=== PATIENT | male | born 1995 | race Caucasian/White ===

== ENCOUNTER 2018-10-22 05:23 | Day surgery (SDC) | payer OTHER ==
[~2018-10-22] VITALS: Ht 180.3 cm; Wt 102.1 kg
--- NOTE | ~2018-10-22 | O ---
[address] [address] OPERATIVE REPORT Name: AMIE MORGAN Room #: DEP [facility]..#: [id number] Admission: 10/22/18 ������������������ Attend Phys: Mac Molina MD Discharge: 10/22/18 ������������������ Date of : [birth year] Report #: [id number] THIS REPORT FOR: //name// CC: ANYA Molina Physician staff DATE OF SERVICE: 10/22/2018 SERVICE: Orthopedics. FACILITY: [facility]. SURGEON: Mac Molina MD NURSE'S COMPANION: Christal Gardner NP INDICATION FOR NURSE'S COMPANION: with repair. PREOPERATIVE DIAGNOSES: 1. Right hip impingement. 2. Right hip labral tear. POSTOPERATIVE DIAGNOSES: 1. Right hip impingement. 2. Right hip labral tear. 3. Right hip synovitis. 4. Right hip chondromalacia, acetabular and femoral sided. PROCEDURES: 1. Right hip arthroscopic labral repair. 2. Right hip arthroscopic extraarticular subspine acetabuloplasty. 3. Right hip arthroscopic Cam osteochondroplasty. 4. Right hip arthroscopic limited synovectomy, loose body removal and chondroplasty. COMPLICATIONS: None. DRAINS: None. SPECIMENS: Synovial biopsy. FINDINGS: 1. Intense proliferative synovitis throughout the hip including anteriorly, posteriorly, laterally and within the pulvinar. A sample of this was taken for permanent pathology due to the atypical appearance of the synovium. [address] [address] OPERATIVE REPORT Name: AMIE MORGAN [facility] [id number] Admission: 10/22/18 ������������������ Attend Phys: Mac Molina MD Discharge: 10/22/18 ������������������ Date of : [birth year] Report #: [id number] 2. Significant chondromalacia. Two focal areas in the acetabulum, the first being just adjacent to the fovea and extending laterally and slightly anteriorly. The second at the acetabular rim adjacent to the impingement pathology. The femoral head demonstrated diffuse grade 2 and grade 3 chondromalacia with no full thickness lesions, significantly atypical for this age group. This was treated with chondroplasty. 3. [place] CinchLock suture anchor x 1 for tear within the anterior superior labrum, which was longitudinal in orientation. 4. 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 HISTORY: The patient is a 23-year-old gentleman with a history of intense acute onset right hip pain. 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 He has been treated extensively with a thorough physical therapy program as well as rest, activity modifications, oral medicines and modalities all without sufficient relief of his symptoms. He had imaging, which was consistent with femoro-acetabular impingement including what appeared to be a partial thickness tear of the labrum as well as combined type GREER. We had a discussion about different options; he elected to undergo surgical treatment. Risks, benefits, alternatives and indications of surgery discussed with him in detail. Risks include but not limited to pain, bleeding, infection, injury to nerves, blood vessels; persistent pain despite surgery, progression of preexisting chondral injury, stiffness, need for further surgery as well as complications related to anesthesia. Despite the risks he wished to proceed. The patient's preoperative Tonnis grade was 0, there was maximum alpha angle of 60 degees, MRI showed labral tear. PROCEDURE IN DETAIL: After the right lower extremity was correctly identified as the operative extremity, the patient underwent placement of a single shot regional nerve block anesthesia and then taken to the operating room where general anesthesia was induced without complications. He was padded appropriately. Prophylactic antibiotics were administered at appropriate time. The right hip femoral head and neck mapped out under fluoroscopy to identify the extent of the Cam deformity. Maximum alpha angle was 60 degrees; the majority of the Cam deformity was distal. He had a short varus neck and the pathologic bone extended to the base of the trochanter and bridged across in a wedge type fashion. This bone appeared to be quite dense and was later confirmed intraoperatively to be so. The right hip was then prepped and draped in standard sterile fashion. Timeout procedure was performed. Traction was applied to right lower extremity after the timeout. A standard anterolateral viewing portal was established followed by mid anterior working portal. Diagnostic cystoscopy immediately revealed intense synovitis throughout the hip. There was proliferative erythematous synovitis anteriorly bright [address] [address] OPERATIVE REPORT Name: AMIE MORGAN Room #: DEP [facility] Noam#: [id number] Admission: 10/22/18 ������������������ Attend Phys: Mac Molina MD Discharge: 10/22/18 ������������������ Date of : [birth year] Report #: [id number] red friable synovitis as well. I made an incision and performed synovectomy as thoroughly as able, but I did take a biopsy with an arthroscopic punch biter first in order to allow for pathologic evaluation. A shaver was used to resect this synovitis working anteriorly first and then across the lateral side of the hip, all within the joint capsule. The synovitis anteriorly was adjacent to a tear that presented within the labrum where it was essentially splitting into 2 segments with a longitudinal tear that ran parallel with the acetabular rim. The synovitis was resected, but the labrum was retained in this position. The capsule was reflected off the dorsal side of the labrum and the synovitis was completed along the capsule and then the extraarticular subspine lesion, which was prominent at the anterior inferior iliac spine, was addressed with recession with the bur. The C-arm was used throughout to confirm the orientation and location of the resection. This correlated with the transverse labral tear that this patient demonstrated. After the subspine recession and acetabuloplasty was completed, the labrum was repaired. A single [place] CinchLock suture anchor was placed in a cerclage suture technique, which provided good compression of the acetabular labrum to the acetabular rim, which stabilized the transverse labral tear that was oriented parallel with the acetabular rim. After this was completed, I worked specifically on the fovea and pulvinar. The thickness of the synovitis made it challenging to do the resection. I initiated it with the scope anterolaterally and the shaver anteromedially and performed as much resection as possible and then switched the scope in the working portal, allowing access from the more lateral position. There were noted to be two small bony loose bodies within the synovitis that was present, but the angle of approach made it very difficult to access these. Instruments then ultimately selected was a Supramedx drill guide, which maintained approximately 80 degree angulation and allowed for blunt dissection of the loose bodies free from the synovitis and then the loose bodies were resected arthroscopically. The pulvinar synovium and the synovitis were resected with the shaver. At this point, traction was let down. The hip was flexed up. The Cam deformity was slightly atypical in terms of its appearance arthroscopically where there was significant sclerosis and an unusually contoured "bumpy" femoral neck. The bur was used to perform the Cam osteoplasty in typical fashion. I removed the instruments from the hip, brought in C-arm, took final x-rays and was happy with the appearance of the Cam osteoplasty at this point. I then placed the instruments back in the hip, lavaged the bony debris out of the hip and then closed the T-shaped capsulotomy with a total of four #2 Vicryl sutures. Instruments removed. Portal sites were closed. Sterile dressing was applied. The patient was awakened from anesthesia and taken to recovery room in stable condition. There were no complications and all counts were recorded as correct. ��������������������������������������������� ���������������������������������������� By: ��������������������������������������������� [id number] Mac Molina MD /nt
[2018-10-22 08:30] VITALS: BP 130/76
[2018-10-22 13:05] VITALS: BP 130/76
== END 2018-10-22 14:15 | disposition home or self-care (01) ==
LOC: TBA 05:23 → OR 05:23
DX: S73.101A Unspecified sprain of right hip, initial encounter (principal); M25.851 Other specified joint disorders, right hip; M94.251 Chondromalacia, right hip; M65.88 Other synovitis and tenosynovitis, other site; Z87.891 Personal history of nicotine dependence; X58.XXXA Exposure to other specified factors, initial encounter; Y93.89 Activity, other specified; Y92.89 Other specified places as the place of occurrence of the external cause; Y99.8 Other external cause status
CPT/HCPCS: 50010; 50101; 50386; 51320; 51538; 52001; 55430; 56524; 56527; 57092; 57103; 62110; 62900; 70005